=== PATIENT | male | born 1955 | race Caucasian/White ===

== ENCOUNTER 2022-07-16 18:58 | Inpatient (IN) | payer MEDICAID ==
[~2022-07-16] VITALS: Ht 165.1 cm; Wt 81.6 kg
--- NOTE | 2022-07-16 18:59 | NUR ---
PATIENT BIBA TO BED 2
[2022-07-16 19:09] VITALS: BP 104/54
[2022-07-16] MEDS ORDERED: NACL 0.9% 1,000 ML IV SCH (19:20)
[2022-07-16] MEDS ORDERED: cefTRIAXone 1,000 MG in DEXT 5% MINI-BAG PLUS 50 ML IV ONE (19:20)
--- NOTE | 2022-07-16 19:21 | NUR ---
Dr. Lizama examining patient.
[2022-07-16] MEDS ORDERED: cefTRIAXone 1,000 MG VIAL ONE (19:29)
--- NOTE | 2022-07-16 19:40 | NUR ---
PT TAKEN TO CT VIA ELOY
[2022-07-16 19:46] LABS: HEMATOCRIT 50.9 % (36-52); HEMOGLOBIN 16.1 g/dL (12.0-18.0); MEAN CORPUSCULAR HEMOGLOBIN 32 pg (27-31); MEAN CORPUSCULAR HGB CONC 32 g/dL (33-37); MEAN CORPUSCULAR VOLUME 100.8 fL (80-94); PLATELET COUNT (AUTO) 128 K/uL (140-450); RED BLOOD CELL COUNT(AUTO) 5.05 MIL/uL (4.20-6.10); RED CELL DISTRIBUTION WIDTH 15.1 % (11.6-13.7); WHITE BLOOD COUNT (AUTO) 17.5 K/uL (4.8-10.8)
--- NOTE | 2022-07-16 19:51 | NUR ---
66YR OLD MALE BIB EMS C/O ABD PAIN PER FAMILY XTODAY. PT IS A&OX2. PT DOES STATE UPPER GASTRIC ABD PAIN. 09/21 [place]. PT HAS HX OF ETOH ABUSE AND DRUG USE. PT DENIES USE OF BOTH TODAY. ON BEDSIDE EQUITY ANALYST HOB ELEVATED. RESP EVEN AND UNLABORED. DENIES CP OR SOB. PT IS A POOR HISTORIAN. BED AT LOWEST POSITION SIDE RAILS UP X2 NKDA UNKNOWN
[2022-07-16 20:04] LABS: LIPASE 311 U/L (73-393)
[2022-07-16 20:09] LABS: ALBUMIN 3.1 g/dL (3.4-5.0); ANION GAP 25.6 (8-16); CARBON DIOXIDE 17.8 mmol/L (21-32); POTASSIUM 3.4 mmol/L (3.5-5.1); TOTAL BILIRUBIN 3.2 mg/dL (0.0-1.0)
[2022-07-16 20:14] LABS: BASOPHILS % (MANUAL) 0 % (0-2); EOSINOPHILS % (MANUAL) 0 % (0-4); LYMPHOCYTES % (MANUAL) 1 % (20-46); MONOCYTES % (MANUAL) 2 % (5-12)
[2022-07-16] MEDS ORDERED: MORPHINE SULFATE 4 MG/ML SYR IVP ONE (20:20)
[2022-07-16 20:24] LABS: CREATININE 4.5 mg/dL (0.6-1.3)
[2022-07-16] MEDS ORDERED: INSULIN REGULAR, HUMAN 100 UNIT in NACL 0.9% 100 ML IV ONE ×2 (20:45)
--- NOTE | 2022-07-16 21:18 | NUR ---
PT APPEARS TO BE RESTING IN SUPINE POSITION, EQUAL RISE AND FALL OF CHEST WALL. ALL NEEDS MET AT THIS TIME. BED LOCKED IN LOWEST POSITION, SIDE RAILS X2 FOR SAFETY.
--- NOTE | 2022-07-16 21:19 | NUR ---
BELONGINGS LIST DONE.
--- NOTE | 2022-07-16 21:28 | NUR ---
ADMISSION ORDERS FOR ICU ADMIT. PT DX OF DKA. PT GLUC OF 1125.
--- NOTE | 2022-07-16 21:30 | NUR ---
DAUGHTER MARC MADE AWARE ABOUT PT STAYING IN HOSPITAL.
[2022-07-16] MEDS: NACL 0.9% 1,000 ML IV SCH ×3 (22:15→23:16)
--- NOTE | 2022-07-16 22:25 | NUR ---
PER FAMILY PT WAS NOT DIAGNOSED WITH DIABETES, BUT FAMILY THOUGHT HE DID D/T SYMPTOMS.
--- NOTE | 2022-07-16 22:34 | NUR ---
PT DOES NOT TAKE MEDICATION. MED RECON COMPLETED.
--- NOTE | 2022-07-16 22:34 | NUR ---
LAB AT BEDSIDE.
[2022-07-16] MEDS ORDERED: INSULIN LISPRO 100 UNITS/ML VIAL SUBQ SCH (22:55)
[2022-07-16] MEDS ORDERED: POTASSIUM CHL 40 MEQ/ D5-1/2NS 1,000 ML IV ONE (23:06)
[2022-07-16] MEDS: POTASSIUM CHL 40 MEQ/ D5-1/2NS 1,000 ML IV SCH (23:23)
--- NOTE | 2022-07-16 23:25 | NUR ---
PT IS LYING IN SUPINE POSITION, APPEARS TO BE ANXIOUS, PT REPOSITIONED, LIGHTS TURNED DOWN TO MINIMIZE STIMULATION. BED LOCKED IN LOWEST POSITION, SIDE RAILS X2 FOR SAFTEY. MEDICATION RUNNING ORDERED.
--- NOTE | 2022-07-16 23:41 | NUR ---
PT APPEARS TO BE LESS ANXIOUS, PT IS LYING STILL IN BED WITH EYES CLOSED. ALL NEEDS MET AT THIS TIME. BED LOCKED IN LOWEST POSITION, SIDE RAILS X2 FOR SAFETY.
[2022-07-16 23:49] LABS: ANION GAP 22.4 (8-16); CARBON DIOXIDE 18.5 mmol/L (21-32)
[2022-07-17 00:13] LABS: CREATININE 4.7 mg/dL (0.6-1.3)
[2022-07-17 00:14] LABS: POTASSIUM 2.9 mmol/L (3.5-5.1)
[2022-07-17 00:22] LABS: HEMATOCRIT 42.9 % (36-52); HEMOGLOBIN 14.4 g/dL (12.0-18.0); MEAN CORPUSCULAR HEMOGLOBIN 32 pg (27-31); MEAN CORPUSCULAR HGB CONC 34 g/dL (33-37); MEAN CORPUSCULAR VOLUME 94.6 fL (80-94); PLATELET COUNT (AUTO) 90 K/uL (140-450); RED BLOOD CELL COUNT(AUTO) 4.53 MIL/uL (4.20-6.10); RED CELL DISTRIBUTION WIDTH 14.1 % (11.6-13.7); WHITE BLOOD COUNT (AUTO) 12.2 K/uL (4.8-10.8)
[2022-07-17 00:41] LABS: LYMPHOCYTES % (MANUAL) 7 % (20-46); MONOCYTES % (MANUAL) 1 % (5-12)
[2022-07-17 04:23] LABS: ANION GAP 22.8 (8-16); POTASSIUM 3.8 mmol/L (3.5-5.1)
[2022-07-17 04:30] LABS: CREATININE 5.1 mg/dL (0.6-1.3)
--- NOTE | 2022-07-17 04:42 | NUR ---
DR BENTON NOTIFED OF CRITICAL LAB VALUES . ORDERS RECIEVED N/S BOLUS WIDE OPEN.
--- NOTE | 2022-07-17 04:57 | NUR ---
Texted Dr Snider regarding sodium went up from 161 to 163; bun and creat 75 and 4.7 to 72 and 5.1. inserted meeks, no urine, just blood from trauma meeks insertion. Asked Dr Snider to give bolus NS; stated to hold NS bolus right now. Will hold NS bolus and let the nurse know
[2022-07-17] MEDS: POTASSIUM CHL 40 MEQ/ D5-1/2NS 1,000 ML IV SCH ×3 (05:18→11:41)
[2022-07-17] MEDS: NACL 0.45% 1,000 ML IV SCH ×2 (06:08→21:21)
--- NOTE | 2022-07-17 07:00 | NUR ---
Ultrasound at bedside.
--- NOTE | 2022-07-17 07:24 | NUR ---
REPORT GIVEN TO KELLEY MCLEOD. TRANSFER OF CARE AT THIS TIME
[2022-07-17] MEDS: NACL 0.9% 1,000 ML IV SCH ×3 (07:41→22:15)
[2022-07-17 08:16] LABS: ANION GAP 23.9 (8-16); CARBON DIOXIDE 13.8 mmol/L (21-32); POTASSIUM 4.7 mmol/L (3.5-5.1)
--- NOTE | 2022-07-17 08:20 | NUR ---
Patient respond to name only. Bed Rest with Iv on left av patent. Right wirst Iv running patent . Ns saline at 250cc/hr. Insulin at 6 IU/H. 30% Potassium and 5%Dextrose and 0.45% NS at 12cc/hr. no erythema or swelling around iv sites f/c in place, dry blood in meatus, no active bleeding, pt restless, on soft restraints, n/c intact, st on cm, hr 118 while at rest, 120s when restless.
[2022-07-17 08:23] LABS: CREATININE 5.4 mg/dL (0.6-1.3)
--- NOTE | 2022-07-17 10:16 | NUR ---
bs 293, pt on insulin drip 6 u/hour, on d5 1/2 ns w 40 kcl at 250 cc/hour, ns 125 cc/hour, and 1/2 ns 100 cc/hour
--- NOTE | 2022-07-17 10:19 | NUR ---
no distress noted, st on cm, o2 sat 98% ra, on 2 points soft restrains, intermittent restlessness. sr up times 2
[2022-07-17 12:04] LABS: APPEARANCE,URINE CLEAR (CLEAR); BILIRUBIN,URINE NEGATIVE (NEGATIVE); BLOOD, URINE 3+ (NEGATIVE); COLOR,URINE YELLOW (YELLOW); LEUKOCYTE ESTERASE ,URINE 2+ (NEGATIVE); NITRITE, URINE POSITIVE (NEGATIVE); UGLUCOSE 1+ (NEGATIVE)
[2022-07-17 12:14] LABS: ANION GAP 21.1 (8-16); CARBON DIOXIDE 13.8 mmol/L (21-32); POTASSIUM 4.9 mmol/L (3.5-5.1)
[2022-07-17 12:17] LABS: CREATININE 5.2 mg/dL (0.6-1.3)
[2022-07-17 12:23] LABS: RBC,URINE 20-50 /HPF (0-5)
[2022-07-17] MEDS ORDERED: PIPERACILLIN/TAZOBACTAM 2.25 GM VIAL IV ONE ×2 (12:55→20:51)
[2022-07-17] MEDS: PIPERACILLIN/TAZOBACTAM 2.25 GM in DEXTROSE 5% 50 ML IV SCH ×2 (13:05→21:20)
[2022-07-17 13:24] LABS: BARBITURATE, URINE NEGATIVE ng/ml (NEG <=200); BENZODIAZEPINE, URINE NEGATIVE ng/mL (NEG <=200); CANNABINOID, URINE NEGATIVE ng/mL (NEG <=50); COCAINE, URINE NEGATIVE ng/mL (NEG <=300); OPIATE, URINE POSITIVE ng/mL (NEG <=2000); PHENCYCLIDINE SCREEN,URINE NEGATIVE ng/mL (NEG <=25)
--- NOTE | 2022-07-17 13:25 | NUR ---
pt still ocassional restlessness, attempting to get off the bed, on two points soft restraints, on d51/2 ns w 40 meq KCL at 250 cc/hour, insulin 6 u/hour, 1/2 ns 100 cc/hour, st on cm, hr 114, sr up times 2. last bs 202.
--- NOTE | 2022-07-17 15:30 | NUR ---
sleeping, intermittent restlessness, o2 sat 96% ra, st on cm, hr 111, sr up tmes 2, soft restraints on, n/c intact, multiple attempts of getting off the bed
[2022-07-17] MEDS ORDERED: LORazepam 2 MG/ML VIAL ONE ×2 (15:51→22:56)
[2022-07-17] MEDS ORDERED: LORazepam 2 MG/ML VIAL IVP SCH (15:59)
--- NOTE | 2022-07-17 16:21 | NUR ---
increased restlessness, medicated w ativan per dr order, bs 123, on insulin drip, 6 units per hour, d5 1/2 ns w 40 kcl 250 hour, 1/2 ns 100 per hour, ns 125 per hour, st on cm, hr 107, o2 sat 97% at 2 l/m via nc, sr up times 2.
[2022-07-17] MEDS ORDERED: DEXTROSE 10% 1,000 ML IV SCH (16:55)
[2022-07-17] MEDS ORDERED: KCL 20 MEQ IN 100 mL PREMIX 200 ML IV ONE ×2 (16:55→17:10)
[2022-07-17] MEDS ORDERED: DEXTROSE 10% 1,000 ML IV ONE (16:58)
--- NOTE | 2022-07-17 17:56 | NUR ---
bs 123. Dr Snider aware, referred to Dr Galeana fluids change: d5 1/2 ns w 40 kcl stopped. started on d10 w 40 kcl as k rider 100/hour, kept on rest fluids: 1/2 ns 100 per hour, ns 125 cc per hour, insulin 6 units per hour currently nsr on cm, hr 98/min, o2 sat 97% at 2 l/m via nc, sr up times 2
--- NOTE | 2022-07-17 18:30 | NUR ---
right hand iv infiltrated (NS w insulin), there is hand and forearm swelling, iv dc'd ice pack at swelling site
--- NOTE | 2022-07-17 19:10 | NUR ---
decreased swelling right hand and wrist, ice pack in place after swelling noted, md made aware picc line has been ordered.
--- NOTE | 2022-07-17 19:29 | NUR ---
report to Rafy cage shift manager nurse
--- NOTE | 2022-07-17 19:30 | NUR ---
L AC PIV infiltrated at this time. placed 3 new PIV on L EJ and 2 on L shoulder.
--- NOTE | 2022-07-17 20:30 | NUR ---
blood sugar [address] Silverman contacted. TORB of d50 amp PRN at this time.
[2022-07-17] MEDS ORDERED: DEXTROSE 50% 50 ML SYR IVP ONE (20:53)
[2022-07-17] MEDS ORDERED: DEXTROSE 50% 50 ML SYR IVP PRN (21:00)
[2022-07-17] MEDS ORDERED: INSULIN REGULAR, HUMAN 100 UNIT in NACL 0.9% 100 ML IV SCH ×4 (21:45→22:55)
[2022-07-17 22:08] LABS: CARBON DIOXIDE 10.8 mmol/L (21-32); POTASSIUM 3.8 mmol/L (3.5-5.1)
[2022-07-17 22:11] LABS: CREATININE 4.3 mg/dL (0.6-1.3)
--- NOTE | 2022-07-17 22:30 | NUR ---
requested PRN for agitation from Dr. Silverman at this time.
[2022-07-17 22:52] LABS: ANION GAP 20.8 (8-16); CARBON DIOXIDE 14.8 mmol/L (21-32); POTASSIUM 5.6 mmol/L (3.5-5.1)
[2022-07-17 22:58] LABS: CREATININE 4.7 mg/dL (0.6-1.3)
--- NOTE | 2022-07-17 22:59 | NUR ---
critical lab values reported to dr. porras. RAH of nephro consult at this time.
[2022-07-17] MEDS: LORazepam 2 MG/ML VIAL IVP PRN (23:02)
--- NOTE | 2022-07-17 23:03 | NUR ---
Benji biller stopped at this time.
[2022-07-18] MEDS ORDERED: NOREPINEPHRINE 4 MG/4 ML VIAL IV ONE (00:24)
[2022-07-18] MEDS: NACL 0.45% 1,000 ML IV SCH ×3 (00:44→22:22)
[2022-07-18 00:46] LABS: ANION GAP 17.8 (8-16); CARBON DIOXIDE 15.4 mmol/L (21-32); POTASSIUM 5.2 mmol/L (3.5-5.1)
[2022-07-18 00:57] LABS: CREATININE 4.6 mg/dL (0.6-1.3)
--- NOTE | 2022-07-18 01:11 | NUR ---
critical labs reported to Dr. Silverman, cl 128 co2 15.4 CA 6.5 pending orders at this time.
[2022-07-18 04:39] LABS: ANION GAP 15.8 (8-16); CARBON DIOXIDE 18.1 mmol/L (21-32); POTASSIUM 4.9 mmol/L (3.5-5.1)
[2022-07-18 04:47] LABS: CREATININE 4.3 mg/dL (0.6-1.3)
--- NOTE | 2022-07-18 05:30 | NUR ---
ABG DRAWN. PT ON 2L NC SPO2 98%.
[2022-07-18] MEDS: PIPERACILLIN/TAZOBACTAM 2.25 GM in DEXTROSE 5% 50 ML IV SCH ×3 (05:49→21:54)
[2022-07-18] MEDS: NACL 0.9% 1,000 ML IV SCH (06:25)
--- NOTE | 2022-07-18 07:29 | NUR ---
REPORT RECEIVED FROM MYLES BENSON, TRANSFER OF CARE AT THIS TIME Addendum: 07/18/22 at 0753 by MNKAT RECEIVED PT IN BED, CURRENTLTY RUNNING D45% AT 125CC, D10 AT 100CC, INSULIN AT 3U
[2022-07-18] MEDS: DEXTROSE 5% 1,000 ML IV SCH ×2 (08:00→18:09)
--- NOTE | 2022-07-18 08:00 | NUR ---
PER DR FAUSTIN, START D5 AT 100 FOR BS AND TO CONTINUE TO CLOSE SURESH PT CURRENTLY ON 3U INSULIN. Addendum: 07/18/22 at [email or web address] FAUSTIN OF BS 160
[2022-07-18] MEDS ORDERED: DEXT 5% /NACL 0.9% 1,000 ML IV SCH (08:05)
[2022-07-18 08:23] LABS: ANION GAP 16.1 (8-16); CREATININE 3.8 mg/dL (0.6-1.3); POTASSIUM 5.1 mmol/L (3.5-5.1)
--- NOTE | 2022-07-18 09:29 | NUR ---
DR WALSH AT BEDSIDE FOR EVAL
--- NOTE | 2022-07-18 09:44 | NUR ---
SPOKE TO BERENICE SISTER, INFORMED OF PT STATUS
--- NOTE | 2022-07-18 09:48 | NUR ---
PATIENT HAS BEEN SCREENED AND CATEGORIZED MODERATE NUTRITION RISK. PATIENT WILL BE SEEN WITHIN 3-5 DAYS OF ADMISSION. REVIEWED BY DOT COTTRELL RD Addendum: 07/18/22 at [address] PT HAS BEEN RE-SCREENED AND CATEGORIZED HIGH NUTRITION RISK. PATIENT WILL BE SEEN WITHIN 1-2 DAYS OF ADMISSION.
[2022-07-18] MEDS ORDERED: ALBUTEROL 0.083% 2.5 MG/3 ML NEBU INH PRN (10:10)
[2022-07-18] MEDS ORDERED: ALBUTEROL 0.083% 2.5 MG/3 ML NEBU INH ONE (10:11)
--- NOTE | 2022-07-18 10:22 | NUR ---
DR HOPKINS AT BEDSIDE FOR EVAL, STATED TO HOLD OFF ON PAIN MEDS FOR THE PT D/T ALOC. PT REPOSITIONED FOR COMFORT
--- NOTE | 2022-07-18 10:45 | NUR ---
DR JOHN PAUL Freeman/ NEPHCHAUNCEY AT BEDSIDE FOR EVAL
--- NOTE | 2022-07-18 11:38 | NUR ---
PT NOTED TO BE MORE AWAKE, OPENS EYES SPONTANEOUSLY, FOLLOWS SOUNDS WITH EYES, ABLE TO MOVE ALL EXTREMITIES. INCOMPREGHENSIBLE VERBAL RESPONSE NOTED, IS NOT ABLE TO FOLLOW COMMANDS.
--- NOTE | 2022-07-18 12:00 | NUR ---
DR FAUSTIN AT BEDSIDE FOR EVAL
--- NOTE | 2022-07-18 12:10 | NUR ---
PICC LINE NURSE AT BEDSIDE FOR PLACEMENT OF MIDLINE, DOUBLE LUMEN MIDLINE IN THE RIGHT FOREARM PLACE, BLOOD RETURN NOTED. DRIPS SWITCHED FROM LEFT SHOULDERS TO MIDLINE
--- NOTE | 2022-07-18 12:30 | NUR ---
PT ATTEMPTING TO PULL OUT LAW AND MIDLINE, PRN ADMIN
[2022-07-18] MEDS: LORazepam 2 MG/ML VIAL IVP PRN (12:38)
--- NOTE | 2022-07-18 12:38 | NUR ---
ECHO AT BEDSIDE
[2022-07-18 12:42] LABS: ANION GAP 17.9 (8-16); CARBON DIOXIDE 16.1 mmol/L (21-32); CREATININE 3.5 mg/dL (0.6-1.3)
[2022-07-18] MEDS ORDERED: PIPERACILLIN/TAZOBACTAM 2.25 GM VIAL IV ONE ×2 (12:57→21:23)
[2022-07-18 16:02] LABS: ANION GAP 14.4 (8-16); CARBON DIOXIDE 18.3 mmol/L (21-32); CREATININE 3.2 mg/dL (0.6-1.3); POTASSIUM 4.7 mmol/L (3.5-5.1)
--- NOTE | 2022-07-18 16:08 | NUR ---
07/18/22 RD INITIAL ASSESSMENT COMPLETED PLEASE REFER TO NUTRITION ASSESSMENT UNDER CARE ACTIVITY FOR ESTIMATED NUTRITIONAL NEEDS. 1. CONTINUE NPO, PER MD. 2. WHEN/ IF MEDICALLY APPROPRIATE, AND IF PT GETS ON PO DIET, RECOMMEND CCHO 60 GRAM MECHANICAL SOFT DIET TOLERATED 3. MONITOR LAB VALUES. 4. RD TO FOLLOW-UP 2-3 DAYS, HIGH RISK REVIEWED BY DOT COTTRELL RD
--- NOTE | 2022-07-18 19:00 | NUR ---
PT IS STILL TACHY, CONFUSED. FOLWY IS INTACK, BLOOD NOTED AROUND PERINEAL AREA
--- NOTE | 2022-07-18 19:20 | NUR ---
Pt report given to CARMELO BENSON. Transfer of care at this time.
--- NOTE | 2022-07-18 19:20 | NUR ---
PT HAS SOME BRUISING ON THE LEFT UPPER ARM AREA. MIDLINE ON THE RIGHT IS INTACT.
[2022-07-18 20:56] LABS: CARBON DIOXIDE 19.3 mmol/L (21-32); CREATININE 2.6 mg/dL (0.6-1.3); POTASSIUM 4.3 mmol/L (3.5-5.1)
--- NOTE | 2022-07-18 22:00 | NUR ---
PT IS CLEANED AND CHANGED, NO BOWEL MOVEMENT. NOTED. PT IS TILL ALTER.
--- NOTE | 2022-07-18 22:20 | NUR ---
Empty his meeks had 300 ml
--- NOTE | 2022-07-18 22:25 | NUR ---
pt urine is tea color.
[2022-07-19] VITALS (10 sets, daily range): BP systolic 94–132; BP diastolic 68–88
--- NOTE | 2022-07-19 | NUR ---
PT HAS EPISODE OF COUGHING.
[2022-07-19 01:03] LABS: ANION GAP 15.9 (8-16); CARBON DIOXIDE 17.3 mmol/L (21-32); CREATININE 2.5 mg/dL (0.6-1.3); POTASSIUM 4.2 mmol/L (3.5-5.1)
--- NOTE | 2022-07-19 02:00 | NUR ---
NOTICE BLOOD COMING OUT FROM HIS PENIS AND THE URINE. NURSE REPOSITITONED THE LAW DRESSSING STICKER.
[2022-07-19 04:17] LABS: ANION GAP 15.6 (8-16); CARBON DIOXIDE 17.7 mmol/L (21-32); CREATININE 2.2 mg/dL (0.6-1.3); POTASSIUM 4.3 mmol/L (3.5-5.1)
[2022-07-19] MEDS ORDERED: PIPERACILLIN/TAZOBACTAM 2.25 GM VIAL IV ONE (05:54)
[2022-07-19] MEDS: DEXTROSE 5% 1,000 ML IV SCH ×2 (06:05→14:00)
[2022-07-19] MEDS: PIPERACILLIN/TAZOBACTAM 2.25 GM in DEXTROSE 5% 50 ML IV SCH ×3 (06:06→20:13)
[2022-07-19] MEDS: NACL 0.45% 1,000 ML IV SCH (07:30)
--- NOTE | 2022-07-19 07:30 | NUR ---
ASSUMED PATIENT CARE, CONCUR WITH PRIOR NURSING ASSESSMENTS.
[2022-07-19 08:18] LABS: BASOPHILS % (AUTO) 0.2 % (0.0-2.0); EOSINOPHILS # (AUTO) 0.3 K/uL (0-0.4); EOSINOPHILS % (AUTO) 2.4 % (0.0-4.0); HEMATOCRIT 37.9 % (36-52); HEMOGLOBIN 12.7 g/dL (12.0-18.0); LYMPHOCYTES % (AUTO) 9.4 % (20.5-51.1); MEAN CORPUSCULAR HEMOGLOBIN 32 pg (27-31); MEAN CORPUSCULAR HGB CONC 33 g/dL (33-37); MEAN CORPUSCULAR VOLUME 94.6 fL (80-94); MONOCYTES # (AUTO) 0.9 K/uL (0.8-1.0); MONOCYTES % (AUTO) 8.2 % (1.7-9.3); NEUTROPHILS # (AUTO) 8.6 K/uL (1.8-7.7); NEUTROPHILS % (AUTO) 79.8 % (42.2-75.2); PLATELET COUNT (AUTO) 53 K/uL (140-450); RED BLOOD CELL COUNT(AUTO) 4.01 MIL/uL (4.20-6.10); RED CELL DISTRIBUTION WIDTH 14.5 % (11.6-13.7); WHITE BLOOD COUNT (AUTO) 10.8 K/uL (4.8-10.8)
--- NOTE | 2022-07-19 08:50 | NUR ---
ADMITTED TO ICU 5. PATIENT CARE REPORT GIVEN TO ASSISTANT VICE PRESIDENT. CONTINUITY OF CARE ENDORSED, PATIENT TRANSFERRED VIA ACLS PROTOCOL.
[2022-07-19 08:57] LABS: ANION GAP 14.5 (8-16); CARBON DIOXIDE 19.3 mmol/L (21-32); POTASSIUM 3.8 mmol/L (3.5-5.1)
[2022-07-19 09:01] LABS: MAGNESIUM 1.8 mg/dL (1.8-2.4); PHOSPHORUS 2.3 mg/dL (2.5-4.9)
[2022-07-19] MEDS ORDERED: POTASSIUM CHL 40 MEQ/ D5-1/2NS 1,000 ML IV SCH (09:20)
[2022-07-19] MEDS ORDERED: BLOOD GLUCOSE MONITORING 1 DEV DEV FS SCH ×2 (09:20→11:30)
[2022-07-19] MEDS ORDERED: CALCIUM CHLORIDE 10% 1,000 MG in NACL 0.9% 100 ML IV ONE (10:05)
[2022-07-19] MEDS ORDERED: DEXTROSE 50% 50 ML SYR IVP PRN (10:15)
[2022-07-19] MEDS ORDERED: INSULIN LISPRO SLIDING SCALE 100 UNITS/ML VIAL SUBQ PRN (10:15)
[2022-07-19] MEDS ORDERED: CALCIUM GLUCONATE 10% 1,000 MG in NACL 0.9% 50 ML IV SCH (10:30)
[2022-07-19] MEDS ORDERED: ONDANSETRON 4 MG/2 ML VIAL IVP PRN (11:05)
[2022-07-19] MEDS ORDERED: INSULIN REGULAR, HUMAN 100 UNIT in NACL 0.9% 100 ML IV SCH ×2 (11:05)
[2022-07-19] MEDS ORDERED: ONDANSETRON 4 MG/2 ML VIAL ONE (11:05)
--- NOTE | 2022-07-19 11:08 | NUR ---
OVERRIDE ZOFRAN 4MG DUE TO PT NAUSEA AND VOMITING.
[2022-07-19] MEDS ORDERED: INSULIN REGULAR, HUMAN 100 UNIT in NACL 0.9% 100 ML IV PRN ×2 (11:10)
[2022-07-19] MEDS ORDERED: OCTREOTIDE ACETATE 1.25 MG in NACL 0.9% 250 ML IV SCH (11:10)
--- NOTE | 2022-07-19 11:52 | NUR ---
DC PLANNIN YRS OLD MALE PATIENT WAS ADMITTED FROM HOME WITH A DX OF DKA. PATIENT HAS A HX OF DM. ADMITTED TO ICU FOR INSULIN DRIP. CONSULTED WITH PULMO AND NEPHRO, CARDIO AND GI. DC PLAN TO GO HOME WHEN STABLE CM TO FOLLOW
--- NOTE | 2022-07-19 13:31 | NUR ---
DR LING HI CONSULTED FOR POSSIBLE GI BLEED. REPORTED 1 EPISODE OF BLACK LIQUID EMESIS APPROXIMATELY 50CC. PROTONIX PPI ORDERED
[2022-07-19 13:35] LABS: ANION GAP 13.6 (8-16); CARBON DIOXIDE 18.5 mmol/L (21-32); CREATININE 1.8 mg/dL (0.6-1.3); POTASSIUM 4.1 mmol/L (3.5-5.1)
[2022-07-19] MEDS: BLOOD GLUCOSE MONITORING 1 DEV DEV FS SCH ×2 (14:31→15:52)
--- NOTE | 2022-07-19 15:34 | NUR ---
DC PLANNING ASSESSMENT COMPLETE PLEASE REFER TO ASSESSMENT FOR DETAILS PT IS A 66 YR OLD MALE ADMITTED TO [facility] FROM HOME WITH DX OF DKA. PT IS REPORTED TO BE CHRONICALLY HOMELESS AND HAS BEEN HOMESLESS FOR 2-3 YRS. PT IS RPEORTED TO STAY WITHIN THE [place] ARE[place]. 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 TAE REPORTS BEING NOTIFIED THAT PT TESTED POSITIVE AT ADMISSION FOR OPIATES, WHICH SHE REPORTS BEING UNAWARE OF. MARC REPORTS SHE WILL CONTACT PTS SISTER, TO SEE IF PATIENT CAN STAY WITH HER ONCE DC'D. Addendum: 07/19/22 at 1536 by Ankur ARANDA Amended: Links added.
[2022-07-19 16:44] LABS: ANION GAP 12.8 (8-16); CARBON DIOXIDE 20.3 mmol/L (21-32); CREATININE 1.8 mg/dL (0.6-1.3); POTASSIUM 4.1 mmol/L (3.5-5.1)
[2022-07-19 16:47] LABS: PHOSPHORUS 2.3 mg/dL (2.5-4.9)
[2022-07-19 16:59] LABS: PHOSPHORUS 2.8 mg/dL (2.5-4.9)
--- NOTE | 2022-07-19 19:30 | NUR ---
RECEIVED PT FROM ICU NURSE CYNTHIA FOR CONTINUITY OF CARE. PT IS LETHARGIC, ON ROOM AIR. BREATHING EVEN AND UNLABORED. PT HAS MIDLINE ON R UPPER ARM,ON SANDOSTATIN DRIP AT 50MCG/HR AND D51/2 NS WITH 40MEQ K AT 100ML/HR.LAW IN PLACE. BLEEDING ON URETHRA NOTED.BRUISING ON L UPPER ARM.ALL PRECAUTIONS IN PLACE. CALL LIGHT WITHIN REACH. WILL CONTINUE TO MONITOR.
[2022-07-19 20:06] LABS: ANION GAP 15.5 (8-16); CARBON DIOXIDE 18.6 mmol/L (21-32); CREATININE 1.7 mg/dL (0.6-1.3); POTASSIUM 5.1 mmol/L (3.5-5.1)
--- NOTE | 2022-07-19 20:15 | NUR ---
SCHEDULED MEDICATIONS GIVEN. NO ACUTE DRUG REACTION NOTED. ALL PRECAUTIONS IN PLACE.WILL CONTINUE TO MONITOR.
[2022-07-19] MEDS ORDERED: DEXT 5% / NACL 0.45% 1,000 ML IV SCH (20:40)
[2022-07-19] MEDS: LORazepam 2 MG/ML VIAL IVP PRN (21:19)
--- NOTE | 2022-07-19 21:19 | NUR ---
PATIENT RESTLESS AT THIS TIME, ATIVAN ORDERED. BP-121/81 HR-99 ON ROOM AIR SAT 99%.
--- NOTE | 2022-07-19 21:40 | NUR ---
PT TRANSFERRED TO [facility] ROOM 111B IN STABLE CONDITION.
--- NOTE | 2022-07-19 22:09 | NUR ---
REPORT GIVEN TO KELLEY ROME FOR CONTINUITY OF CARE.
--- NOTE | 2022-07-19 22:10 | NUR ---
RECEIVED REPORT FROM KELLEY RUIZ. PT WAS DOWNGRADED FROM ICU TO MST DEPARTMENT. PT IS SLEEPING, BEDREST AND AOX1. PT IS ON ROOM AIR AND ON NPO DIET. PT HAS LAW CATHETER AND HAS RIGHT UPPER ARM MIDLINE RUNNING WITH D5 1/2 NS AT 100 ML/HR. PT HAS BRUISES ON UPPER EXTREMITIES. ALL SAFETY PRECAUTION WAS IMPLEMENTED. BED IN LOW POSITION, BED WHEELS ON LOCKED AND CALL LIGHT WITHIN REACH.
[2022-07-20] VITALS: BP 152/94
--- NOTE | 2022-07-20 00:10 | NUR ---
NOTIFIED DR. WILLIAMSON THAT THE PT WAS ALREADY DOWNGRADED TO TELE UNIT AND HAS A BLOOD GLUCOSE OF 224. HUMALOG SLIDING SCALE WAS ON HOLD AND PT IS ON D5 1/[address] WILLIAMSON ORDER TO CONTINUE THE SLIDING SCALE AND STOP THE D5 1/2 NS. ORDER WAS MADE AND CARRIED OUT.
[2022-07-20 00:37] LABS: ANION GAP 13.8 (8-16); CARBON DIOXIDE 21.2 mmol/L (21-32); CREATININE 1.7 mg/dL (0.6-1.3)
[2022-07-20] MEDS: BLOOD GLUCOSE MONITORING 1 DEV DEV FS SCH ×7 (00:58→23:18)
[2022-07-20] MEDS: INSULIN LISPRO SLIDING SCALE 100 UNITS/ML VIAL SUBQ PRN ×7 (00:59→23:20)
--- NOTE | 2022-07-20 02:00 | NUR ---
PT IS ON SLEEP. CHEST RISE AND FALL SYMMETRICALLY NOTED. RESPIRATION IS EVEN AND UNLABORED. NO S/S OF RESPIRATORY DISTRESS NOTED. ALL SAFETY MEASURES IMPLEMENTED. BED IN LOW POSITION, BED WHEELS ON LOCK AND CALL LIGHT WITHIN REACH.
[2022-07-20 04:00] VITALS: BP 154/77
--- NOTE | 2022-07-20 04:00 | NUR ---
MORNING CARE WAS DONE TO PT. CHANGED CHUCKS, LINENS AND GOWN. NO S/S OF RESPIRATORY DISTRESS NOTED. ALL SAFETY MEASURES IMPLEMENTED. BED IN LOW POSITION, BED WHEELS ON LOCK AND CALL LIGHT WITHIN REACH.
[2022-07-20 04:01] LABS: BASOPHILS % (AUTO) 0.4 % (0.0-2.0); EOSINOPHILS # (AUTO) 0.2 K/uL (0-0.4); EOSINOPHILS % (AUTO) 1.7 % (0.0-4.0); HEMATOCRIT 42.6 % (36-52); HEMOGLOBIN 14.2 g/dL (12.0-18.0); LYMPHOCYTES # (AUTO) 1.4 K/uL (2.0-11.5); LYMPHOCYTES % (AUTO) 10.5 % (20.5-51.1); MEAN CORPUSCULAR HEMOGLOBIN 32 pg (27-31); MEAN CORPUSCULAR HGB CONC 33 g/dL (33-37); MEAN CORPUSCULAR VOLUME 95.8 fL (80-94); MONOCYTES # (AUTO) 1.2 K/uL (0.8-1.0); MONOCYTES % (AUTO) 8.5 % (1.7-9.3); NEUTROPHILS # (AUTO) 10.8 K/uL (1.8-7.7); NEUTROPHILS % (AUTO) 78.9 % (42.2-75.2); PLATELET COUNT (AUTO) 28 K/uL (140-450); RED BLOOD CELL COUNT(AUTO) 4.45 MIL/uL (4.20-6.10); RED CELL DISTRIBUTION WIDTH 14.9 % (11.6-13.7); WHITE BLOOD COUNT (AUTO) 13.6 K/uL (4.8-10.8)
--- NOTE | 2022-07-20 04:07 | NUR ---
PT BLOOD GLUCOSE IS 236. HUMALOG INSULIN 4 UNITS WAS GIVEN TO PT.
[2022-07-20] MEDS ORDERED: PIPERACILLIN/TAZOBACTAM 2.25 GM VIAL IV ONE (04:18)
[2022-07-20] MEDS: PIPERACILLIN/TAZOBACTAM 2.25 GM in DEXTROSE 5% 50 ML IV SCH ×3 (04:23→20:05)
--- NOTE | 2022-07-20 04:23 | NUR ---
SCHEDULED AND PRESCRIBED MEDICATION WAS GIVEN TO PT PER MD ORDER. ALL SAFETY MEASURES IMPLEMENTED. BED IN LOW POSITION, BED WHEELS ON LOCK AND CALL LIGHT WITHIN REACH.
[2022-07-20 04:26] LABS: ANION GAP 13.8 (8-16); CARBON DIOXIDE 21.1 mmol/L (21-32); CREATININE 1.7 mg/dL (0.6-1.3); POTASSIUM 4.9 mmol/L (3.5-5.1)
[2022-07-20 04:31] LABS: MAGNESIUM 2.1 mg/dL (1.8-2.4); PHOSPHORUS 1.9 mg/dL (2.5-4.9)
--- NOTE | 2022-07-20 07:22 | NUR ---
PT IS STABLE. ENDORSED PT TO MORNING SHIFT NURSE FOR CONTINUITY OF CARE.
[2022-07-20 08:00] VITALS: BP 123/80
[2022-07-20] MEDS: NACL 0.45% 1,000 ML IV SCH ×2 (08:05→18:32)
[2022-07-20] MEDS: PANTOPRAZOLE 40 MG INJ VIAL IVP SCH (09:46)
[2022-07-20 10:30] LABS: ANION GAP 16.3 (8-16); CREATININE 1.7 mg/dL (0.6-1.3); POTASSIUM 5.3 mmol/L (3.5-5.1)
--- NOTE | 2022-07-20 11:50 | NUR ---
CALLED DR. JEWELS WILLIAMSON AT [facility] [phone] TO REVIEW ROUTINE ABG; SLADE/EXCHANGE TO PAGE FORMMARIA C LEONE; PATIENT INFORMATION AND CALL BACK NUMBER GIVEN
--- NOTE | 2022-07-20 11:53 | NUR ---
CALL BACK FROM DR. JEWELS WILLIAMSON REVIEWED ROUTINE ABG RESULTS; NO RESPIRATORY ORDERS GIVEN
[2022-07-20 12:00] VITALS: BP 129/79
[2022-07-20 13:44] LABS: ANION GAP 14.7 (8-16); CARBON DIOXIDE 21.1 mmol/L (21-32); CREATININE 1.5 mg/dL (0.6-1.3); POTASSIUM 3.8 mmol/L (3.5-5.1)
[2022-07-20] MEDS: ALBUTEROL 0.083% 2.5 MG/3 ML NEBU INH SCH ×2 (14:28→19:00)
--- NOTE | 2022-07-20 14:32 | NUR ---
07/20/22 RD FOLLOW UP COMPLETED PLEASE REFER TO NUTRITION ASSESSMENT UNDER CARE ACTIVITY FOR ESTIMATED NUTRITIONAL NEEDS. 1. CONTINUE NPO, PER MD 2. RECOMMEND ST EVAL 3. WHEN/ IF MEDICALLY APPROPRIATE, AND IF PT PASSES ST EVAL, RECOMMEND CCHO 60 GRAM DIET WITH MODIFIED TEXTURE, PER ST. 4. MONITOR LAB VALUES. 5. RD TO FOLLOW-UP 2-3 DAYS, HIGH RISK REVIEWED BY DOT COTTRELL RD
[2022-07-20 16:00] VITALS: BP 145/89
[2022-07-20 16:48] LABS: ANION GAP 12.7 (8-16); CARBON DIOXIDE 21.3 mmol/L (21-32); CREATININE 1.7 mg/dL (0.6-1.3)
--- NOTE | 2022-07-20 19:15 | NUR ---
RECEIVED PT FROM MORNING SHIFT NURSE. PT IS AOX1, SLEEPING AND ON BEDREST. PT IS ON ROOM AIR AND ON [facility] PUREE DIET. PT HAS RIGHT UPPER ARM MIDLINE RUNNING WITH 1/2 NS AT 100ML/HR. NO S/S OF RESPIRATORY DISTRESS NOTED. PT SKIN IS INTACT. ALL SAFETY MEASURES IMPLEMENTED. BED IN LOW POSITION, BED WHEELS ON LOCK AND CALL LIGHT WITHIN REACH.
--- NOTE | 2022-07-20 19:54 | NUR ---
ENDORSE PATIENT IN STABLE CONDITION TO PM SHIFT NURSE WHILE PIV 1/2NS INFUSING AT 100ML/HR VIA R. UPPER ARM MIDLINE. PATIENT START PUREE DIET TONIGHT DINNER
[2022-07-20] MEDS: INSULIN LANTUS 100 UNITS/ML 10 ML VIAL SUBQ SCH (20:07)
--- NOTE | 2022-07-20 20:07 | NUR ---
PT BLOOD GLUCOSE IS 257. HUMALOG INSULIN 6 UNITS WAS GIVEN TO THE PT. ALL THE SCHEDULED AND PRESCRIBED MEDICATION WAS GIVEN TO PT. ALL SAFETY MEASURES IMPLEMENTED. BED IN LOW POSITION, BED WHEELS ON LOCK AND CALL LIGHT WITHIN REACH.
[2022-07-20 20:29] LABS: ANION GAP 12.1 (8-16); CARBON DIOXIDE 22.1 mmol/L (21-32); CREATININE 1.5 mg/dL (0.6-1.3); POTASSIUM 4.2 mmol/L (3.5-5.1)
--- NOTE | 2022-07-20 23:20 | NUR ---
PT BLOOD GLUCOSE IS 181. HUMALOG INSULIN 4 UNITS WAS GIVEN TO PT. ALL SAFETY MEASURES IMPLEMENTED. BED IN LOW POSITION, BED WHEELS ON LOCK AND CALL LIGHT WITHIN REACH.
[2022-07-21] VITALS: BP 129/79
[2022-07-21 00:31] LABS: ANION GAP 12.6 (8-16); CARBON DIOXIDE 21.9 mmol/L (21-32); CREATININE 1.5 mg/dL (0.6-1.3); POTASSIUM 3.5 mmol/L (3.5-5.1)
--- NOTE | 2022-07-21 02:00 | NUR ---
PT IS ON SLEEP. CHEST RISE AND FALL SYMMETRICALLY NOTED. RESPIRATION IS EVEN AND UNLABORED. NO S/S OF RESPIRATORY DISTRESS NOTED. ALL SAFETY MEASURES IMPLEMENTED, BED IN LOW POSITION, BED WHEELS ON LOCK AND CALL LIGHT WITHIN REACH.
[2022-07-21] MEDS: BLOOD GLUCOSE MONITORING 1 DEV DEV FS SCH ×5 (03:35→21:00)
[2022-07-21] MEDS: INSULIN LISPRO SLIDING SCALE 100 UNITS/ML VIAL SUBQ PRN ×5 (03:36→21:04)
--- NOTE | 2022-07-21 03:36 | NUR ---
PT BLOOD GLUCOSE IS 163. HUMALOG INSULIN 2 UNITS WAS GIVEN TO PT. ALL SAFETY MEASURES IMPLEMENTED, BED IN LOW POSITION, BED WHEELS ON LOCK AND CALL LIGHT WITHIN REACH.
[2022-07-21] MEDS: NACL 0.45% 1,000 ML IV SCH ×3 (04:05→23:09)
[2022-07-21 04:10] LABS: BASOPHILS % (AUTO) 0.2 % (0.0-2.0); EOSINOPHILS # (AUTO) 0.4 K/uL (0-0.4); EOSINOPHILS % (AUTO) 2.9 % (0.0-4.0); HEMATOCRIT 35.1 % (36-52); HEMOGLOBIN 11.9 g/dL (12.0-18.0); LYMPHOCYTES # (AUTO) 1.4 K/uL (2.0-11.5); LYMPHOCYTES % (AUTO) 11.2 % (20.5-51.1); MEAN CORPUSCULAR HEMOGLOBIN 32 pg (27-31); MEAN CORPUSCULAR HGB CONC 34 g/dL (33-37); MEAN CORPUSCULAR VOLUME 95.5 fL (80-94); MONOCYTES # (AUTO) 1.3 K/uL (0.8-1.0); MONOCYTES % (AUTO) 10.9 % (1.7-9.3); NEUTROPHILS # (AUTO) 9.1 K/uL (1.8-7.7); NEUTROPHILS % (AUTO) 74.8 % (42.2-75.2); PLATELET COUNT (AUTO) 61 K/uL (140-450); RED BLOOD CELL COUNT(AUTO) 3.68 MIL/uL (4.20-6.10); RED CELL DISTRIBUTION WIDTH 14.3 % (11.6-13.7); WHITE BLOOD COUNT (AUTO) 12.2 K/uL (4.8-10.8)
[2022-07-21 04:19] LABS: ANION GAP 11.6 (8-16); CARBON DIOXIDE 22.5 mmol/L (21-32); CREATININE 1.4 mg/dL (0.6-1.3); POTASSIUM 4.1 mmol/L (3.5-5.1)
[2022-07-21 04:22] LABS: MAGNESIUM 2.1 mg/dL (1.8-2.4); PHOSPHORUS 1.4 mg/dL (2.5-4.9)
[2022-07-21] MEDS: PIPERACILLIN/TAZOBACTAM 2.25 GM in DEXTROSE 5% 50 ML IV SCH ×3 (04:38→21:04)
--- NOTE | 2022-07-21 04:38 | NUR ---
SCHEDULED AND PRESCRIBED MEDICATION WAS GIVEN TO PT. ALL SAFETY MEASURES IMPLEMENTED, BED IN LOW POSITION, BED WHEELS ON LOCK AND CALL LIGHT WITHIN REACH.
--- NOTE | 2022-07-21 07:23 | NUR ---
PT IS STABLE. ENDORSED PT TO MORNING NURSE FOR CONTINUITY OF CARE.
--- NOTE | 2022-07-21 07:24 | NUR ---
RECEIVED PATIENT FROM SCHOOL PATROL NURSE.PATIENT SLEEPING IN BED.CHEST RISING AND FALLING EVENLY.NO OTHER SIGNS OF DISTRESS NOTED.ALL SAFETY MEASURES IN PLACE.WILL CONTINUE TO MONITOR.
[2022-07-21 08:00] VITALS: BP 137/79
[2022-07-21] MEDS: ALBUTEROL 0.083% 2.5 MG/3 ML NEBU INH SCH ×3 (08:23→20:13)
[2022-07-21] MEDS: PANTOPRAZOLE 40 MG INJ VIAL IVP SCH (09:03)
[2022-07-21] MEDS ORDERED: SODIUM PHOS / POTASSIUM PHOS 1 PKT PDR PO SCH (09:20)
[2022-07-21] MEDS ORDERED: CALCIUM GLUC 1 GM/50 mL NS BAG 50 ML IV SCH (09:30)
[2022-07-21 12:50] LABS: ANION GAP 14.3 (8-16); CARBON DIOXIDE 20.3 mmol/L (21-32); CREATININE 1.4 mg/dL (0.6-1.3); POTASSIUM 3.6 mmol/L (3.5-5.1)
--- NOTE | 2022-07-21 13:00 | NUR ---
FREQUENT ROUNDS DONE.PATIENT IS IN BED.VS STABLE. NO OTHER SIGNS OF DISTRESS NOTED.DAUGHTER AT BEDSIDE. ASKING ABOUT THE DISEASE PROCESS, EXPLAINED REGARDING THE PLAN OF CARE. EDUCATION GIVEN REGARDING DKA, VERBALIZED UNDERSTANDING.
[2022-07-21 16:00] VITALS: BP 135/87
[2022-07-21 16:18] LABS: ANION GAP 13.8 (8-16); CARBON DIOXIDE 18.9 mmol/L (21-32); CREATININE 1.4 mg/dL (0.6-1.3); POTASSIUM 3.7 mmol/L (3.5-5.1)
[2022-07-21 17:57] LABS: ANION GAP 15.8 (8-16); CARBON DIOXIDE 18.8 mmol/L (21-32); CREATININE 1.5 mg/dL (0.6-1.3); POTASSIUM 3.6 mmol/L (3.5-5.1)
--- NOTE | 2022-07-21 19:30 | NUR ---
ENDORSED TO ASSISTANT CHILD CARE TEACHER FOR CONTINUITY OF CARE. ALL NEEDS MET DURING THE SHIFT.
--- NOTE | 2022-07-21 20:00 | NUR ---
PATIENT IS WELL RESTED IN BED ON ROOM AIR SATING 98%. NO DISTRESS. NO COMPLAINTS OF PAIN. IVF 1/2 NS 75 ML/HR INFUSING IN THE RIGHT UPPER ARM MIDLINE. BEDBOUND. LAW CATHETER DRAINING WELL. SAFETY MEASURES ARE IN PLACE. CALL LIGHT IN REACH.
[2022-07-21 20:31] LABS: ANION GAP 13.6 (8-16); CARBON DIOXIDE 19.9 mmol/L (21-32); CREATININE 1.5 mg/dL (0.6-1.3); POTASSIUM 3.5 mmol/L (3.5-5.1)
[2022-07-21] MEDS: INSULIN LANTUS 100 UNITS/ML 10 ML VIAL SUBQ SCH (21:07)
[2022-07-22] VITALS: BP 100/58
[2022-07-22] MEDS: BLOOD GLUCOSE MONITORING 1 DEV DEV FS SCH ×6 (00:19→20:15)
[2022-07-22] MEDS: INSULIN LISPRO SLIDING SCALE 100 UNITS/ML VIAL SUBQ PRN ×5 (00:21→20:16)
[2022-07-22 01:01] LABS: ANION GAP 10.9 (8-16); CARBON DIOXIDE 22.6 mmol/L (21-32); CREATININE 1.5 mg/dL (0.6-1.3); POTASSIUM 3.5 mmol/L (3.5-5.1)
--- NOTE | 2022-07-22 04:00 | NUR ---
BLOOD SUGAR WAS 133 , NO INSULIN COVERAGE NEEDED.
[2022-07-22 04:01] LABS: BASOPHILS % (AUTO) 0.3 % (0.0-2.0); EOSINOPHILS # (AUTO) 0.5 K/uL (0-0.4); EOSINOPHILS % (AUTO) 4.9 % (0.0-4.0); HEMATOCRIT 34.5 % (36-52); LYMPHOCYTES % (AUTO) 19.9 % (20.5-51.1); MEAN CORPUSCULAR HEMOGLOBIN 32 pg (27-31); MEAN CORPUSCULAR HGB CONC 35 g/dL (33-37); MEAN CORPUSCULAR VOLUME 92.6 fL (80-94); MONOCYTES # (AUTO) 1.4 K/uL (0.8-1.0); MONOCYTES % (AUTO) 13.6 % (1.7-9.3); NEUTROPHILS # (AUTO) 6.3 K/uL (1.8-7.7); NEUTROPHILS % (AUTO) 61.3 % (42.2-75.2); PLATELET COUNT (AUTO) 97 K/uL (140-450); RED BLOOD CELL COUNT(AUTO) 3.73 MIL/uL (4.20-6.10); RED CELL DISTRIBUTION WIDTH 14.6 % (11.6-13.7); WHITE BLOOD COUNT (AUTO) 10.2 K/uL (4.8-10.8)
[2022-07-22 04:15] LABS: ANION GAP 12.9 (8-16); CARBON DIOXIDE 21.4 mmol/L (21-32); CREATININE 1.4 mg/dL (0.6-1.3); POTASSIUM 3.3 mmol/L (3.5-5.1)
[2022-07-22 04:19] LABS: MAGNESIUM 1.9 mg/dL (1.8-2.4); PHOSPHORUS 1.6 mg/dL (2.5-4.9)
--- NOTE | 2022-07-22 07:22 | NUR ---
GAVE REPORT TO DAY SHIFT NURSE FOR CONTINUITY OF CARE.
--- NOTE | 2022-07-22 07:31 | NUR ---
RECEIVED PATIENT FROM PARTNER ALLIANCE MANAGER NURSE.PATIENT SLEEPING IN BED. CHEST RISING AND FALLING EVENLY.ALL SAFETY MEASURES IN PLACE. CALL LIGHT WITHIN REACH.NO SIGNS OF DISTRESS NOTED. WILL CONTINUE TO MONITOR.
[2022-07-22] MEDS: ALBUTEROL 0.083% 2.5 MG/3 ML NEBU INH SCH ×3 (07:39→19:33)
[2022-07-22 08:00] VITALS: BP 149/75
[2022-07-22 09:33] LABS: ANION GAP 12.2 (8-16); CARBON DIOXIDE 22.2 mmol/L (21-32); CREATININE 1.3 mg/dL (0.6-1.3); POTASSIUM 3.4 mmol/L (3.5-5.1)
[2022-07-22] MEDS: PANTOPRAZOLE 40 MG INJ VIAL IVP SCH (09:53)
[2022-07-22] MEDS ORDERED: POTASSIUM CHLORIDE 10 MEQ TABER PO SCH (10:03)
[2022-07-22] MEDS: SODIUM PHOS / POTASSIUM PHOS 1 PKT PDR PO SCH ×2 (10:16→20:27)
--- NOTE | 2022-07-22 11:15 | NUR ---
FREQUENT ROUNDS DONE. PATIENT IN BED. NO OTHER SIGNS OF DISTRESS NOTED. MORNING CARE GIVEN. ALL SCHEDULED MEDICATIONS GIVEN. REPLACED PRN POTTASIUM AND PHOSPHOROUS PER LAB RESULTS AND DOCTORS ORDER.CALL LIGHT WITHIN REACH.WILL CONTINUE TO MONITOR
[2022-07-22] MEDS: NACL 0.45% 1,000 ML IV SCH (12:45)
--- NOTE | 2022-07-22 14:45 | NUR ---
FREQUENT ROUNDS DONE. PATIENT STANDING AT BEDSIDE. FOUND STOOL ALL OVER THE BEDSIDE AND BODY. PATIENT WAS CLEANED AND PROVIDED A SHOWER WITH THE HELP OF STUDIO HAND.
--- NOTE | 2022-07-22 15:51 | NUR ---
07/22/22 RD FOLLOW UP COMPLETED PLEASE REFER TO NUTRITION ASSESSMENT UNDER CARE ACTIVITY FOR ESTIMATED NUTRITIONAL NEEDS. 1. CONTINUE [facility] [place] 60 GRAM PUREE DIET WITH NECTAR THICK LIQUIDS 2. MONITOR PO INTAKE, GI, LAB VALUES. 3. RD TO FOLLOW-UP 7 DAYS, LOW RISK REVIEWED BY DOT COTTRELL RD
--- NOTE | 2022-07-22 15:57 | NUR ---
P.T. NOTES P.T. EVAL COMPLETED; REFER TO EVAL FOR DETAILS.
[2022-07-22 16:00] VITALS: BP 144/78
[2022-07-22 16:36] LABS: ANION GAP 14.6 (8-16); CARBON DIOXIDE 18.1 mmol/L (21-32); CREATININE 1.3 mg/dL (0.6-1.3); POTASSIUM 3.7 mmol/L (3.5-5.1)
--- NOTE | 2022-07-22 19:30 | NUR ---
ENDORSED THE PATIENT TO STRINGER MACHINE TENDER NURSE FOR THE CONTINUITY OF CARE.
[2022-07-22 20:00] LABS: CARBON DIOXIDE 19.6 mmol/L (21-32); CREATININE 1.4 mg/dL (0.6-1.3); POTASSIUM 3.6 mmol/L (3.5-5.1)
[2022-07-22] MEDS: INSULIN LANTUS 100 UNITS/ML 10 ML VIAL SUBQ SCH (20:27)
--- NOTE | 2022-07-22 20:27 | NUR ---
SCHEDULED DUE MEDICATION GIVEN. BLOOD SUGAR CHECK AT 2014 WAS 197 INSULIN COVERAGE ADMINISTERED.
--- NOTE | 2022-07-22 22:16 | NUR ---
PATIENT IS AWAKE, NO S/S OF RESPIRATORY DISTRESS ON ROOM AIR. DENIES PAIN OR ANY DISCOMFORT. IVF D5NS INFUSING WELL. SKIN WARM AND DRY TO THE TOUCH. CALL LIGHT WITHIN REACH. SAFETY MEASURES IN PLACE. LAW CATHETER DRAINING TO GRAVITY.
[2022-07-22] MEDS ORDERED: ACETAMINOPHEN 325 MG TAB PO PRN (23:05)
[2022-07-23] VITALS: BP 136/87
[2022-07-23] MEDS ORDERED: ACETAMINOPHEN EXTRA STRENGTH 500 MG TAB PO PRN (00:05)
[2022-07-23] MEDS: BLOOD GLUCOSE MONITORING 1 DEV DEV FS SCH ×7 (00:07→23:43)
[2022-07-23] MEDS: INSULIN LISPRO SLIDING SCALE 100 UNITS/ML VIAL SUBQ PRN ×6 (00:10→23:44)
[2022-07-23] MEDS: NACL 0.45% 1,000 ML IV SCH (01:49)
[2022-07-23] MEDS: ALBUTEROL 0.083% 2.5 MG/3 ML NEBU INH SCH ×3 (07:12→19:00)
--- NOTE | 2022-07-23 07:12 | NUR ---
ENDORSED PATIENT TO NURSE EUSEBIO FOR CONTINUITY OF CARE.
--- NOTE | 2022-07-23 07:13 | NUR ---
RECEIVED PT FROM MATERIAL MANAGER NURSE FOR CONTINUITY OF CARE. PT IN BED SLEEPING. VISIBLE CHEST RISE/FALL, RESPIRATIONS EVEN AND UNLABORED ON RA. SKIN WARM AND DRY, MIDLINE ON R U/A DOUBLE LUMEN RUNNING 1/2 NS @ 125CC. CALL LIGHT WITHIN REACH. ALL SAFETY PRECAUTIONS IN PLACE.
[2022-07-23 07:16] LABS: HEMATOCRIT 34.4 % (36-52); HEMOGLOBIN 11.9 g/dL (12.0-18.0); MEAN CORPUSCULAR HEMOGLOBIN 33 pg (27-31); MEAN CORPUSCULAR HGB CONC 34 g/dL (33-37); MEAN CORPUSCULAR VOLUME 95.1 fL (80-94); PLATELET COUNT (AUTO) 128 K/uL (140-450); RED BLOOD CELL COUNT(AUTO) 3.62 MIL/uL (4.20-6.10); RED CELL DISTRIBUTION WIDTH 14.7 % (11.6-13.7); WHITE BLOOD COUNT (AUTO) 9.4 K/uL (4.8-10.8)
[2022-07-23 07:54] LABS: ANION GAP 11.7 (8-16); CREATININE 1.1 mg/dL (0.6-1.3); POTASSIUM 3.7 mmol/L (3.5-5.1)
[2022-07-23 08:00] VITALS: BP 106/68
[2022-07-23 08:09] LABS: MAGNESIUM 1.8 mg/dL (1.8-2.4); PHOSPHORUS 2.7 mg/dL (2.5-4.9)
[2022-07-23 08:25] LABS: EOSINOPHILS % (MANUAL) 5 % (0-4); LYMPHOCYTES % (MANUAL) 24 % (20-46); METAMYELOCYTES % 2 % (0-0); MONOCYTES % (MANUAL) 14 % (5-12); PROMYELOCYTES % 1 % (0-0)
[2022-07-23] MEDS: METOPROLOL SUCCINATE 50 MG TABER PO SCH (08:41)
[2022-07-23] MEDS: ECOTRIN 81 MG TABEC PO SCH (08:41)
[2022-07-23] MEDS: lisinopriL 5 MG TAB PO SCH (08:48)
--- NOTE | 2022-07-23 08:48 | NUR ---
ADMINISTERED SCHEDULED MEDS AND 2 UNITS OF INSULIN PER SLIDING SCALE. PT TOLERATING WELL.
[2022-07-23] MEDS: PANTOPRAZOLE 40 MG INJ VIAL IVP SCH (11:09)
[2022-07-23 16:00] VITALS: BP 111/74
--- NOTE | 2022-07-23 19:10 | NUR ---
RECEIVED PATIENT IN BED AWAKE, ALERT AND ORIENTED X2 WITH CONFUSION. DENIES PAIN. NO ACUTE RESPIRATORY DISTRESS. SKIN WARM AND DRY TO TOUCH. SAFETY PRECAUTION IN PLACE, CALL LIGHT IN REACH.
--- NOTE | 2022-07-23 19:15 | NUR ---
ENDORSED PT TO INTERNET SALES REPRESENTATIVE NURSE FOR CONTINUITY OF CARE. PT IN STABLE CONDITION.
[2022-07-23] MEDS: INSULIN LANTUS 100 UNITS/ML 10 ML VIAL SUBQ SCH (20:13)
[2022-07-24] VITALS: BP 122/75
[2022-07-24] MEDS: BLOOD GLUCOSE MONITORING 1 DEV DEV FS SCH ×6 (04:08→23:06)
--- NOTE | 2022-07-24 06:29 | NUR ---
PATIENT IS ASLEEP. ALL NEEDS ATTENDED TO. PT IS STABLE CONDITION. SAFETY PRECAUTIONS IN PLACE, CALL LIGHT IN REACH
--- NOTE | 2022-07-24 07:25 | NUR ---
RECEIVED PT FROM DRUG PURCHASER NURSE FOR CONTINUITY OF CARE. PT IS SLEEPING. VISIBLE CHEST RISE/FALL. RESPIRATIONS EVEN AND UNLABORED ON RA. NO DISTRESS NOTED. CALL LIGHT WITHIN REACH. ALL SAFETY PRECAUTIONS IN PLACE.
[2022-07-24] MEDS: ALBUTEROL 0.083% 2.5 MG/3 ML NEBU INH SCH ×3 (07:45→20:06)
[2022-07-24 08:00] VITALS: BP 101/74
[2022-07-24] MEDS: lisinopriL 5 MG TAB PO SCH (09:00)
[2022-07-24] MEDS: PANTOPRAZOLE 40 MG INJ VIAL IVP SCH (09:00)
[2022-07-24] MEDS: METOPROLOL SUCCINATE 50 MG TABER PO SCH (09:00)
[2022-07-24 09:05] LABS: BASOPHILS # (AUTO) 0.1 K/uL (0.00-0.22); BASOPHILS % (AUTO) 0.7 % (0.0-2.0); EOSINOPHILS # (AUTO) 0.3 K/uL (0-0.4); EOSINOPHILS % (AUTO) 2.8 % (0.0-4.0); HEMATOCRIT 40.2 % (36-52); HEMOGLOBIN 13.2 g/dL (12.0-18.0); LYMPHOCYTES # (AUTO) 2.9 K/uL (2.0-11.5); LYMPHOCYTES % (AUTO) 24.5 % (20.5-51.1); MEAN CORPUSCULAR HEMOGLOBIN 32 pg (27-31); MEAN CORPUSCULAR HGB CONC 33 g/dL (33-37); MONOCYTES # (AUTO) 1.1 K/uL (0.8-1.0); NEUTROPHILS # (AUTO) 7.4 K/uL (1.8-7.7); NEUTROPHILS % (AUTO) 62.3 % (42.2-75.2); PLATELET COUNT (AUTO) 164 K/uL (140-450); RED BLOOD CELL COUNT(AUTO) 4.14 MIL/uL (4.20-6.10); RED CELL DISTRIBUTION WIDTH 14.4 % (11.6-13.7); WHITE BLOOD COUNT (AUTO) 11.9 K/uL (4.8-10.8)
[2022-07-24 09:13] LABS: ANION GAP 11.6 (8-16); CARBON DIOXIDE 21.4 mmol/L (21-32); CREATININE 1.1 mg/dL (0.6-1.3)
[2022-07-24] MEDS: ECOTRIN 81 MG TABEC PO SCH (09:14)
[2022-07-24 09:26] LABS: MONOCYTES % (AUTO) 9.7 % (1.7-9.3)
[2022-07-24] MEDS: INSULIN LISPRO SLIDING SCALE 100 UNITS/ML VIAL SUBQ PRN ×4 (12:38→23:11)
[2022-07-24 16:00] VITALS: BP 106/72
--- NOTE | 2022-07-24 19:10 | NUR ---
ENDORSED PT TO PHOTOGRAPHIC REPRODUCTION TECHNICIAN NURSE FOR CONTINUITY OF CARE. PT IS STABLE.
--- NOTE | 2022-07-24 19:30 | NUR ---
RECEIVED REPORT FROM DAY SHIFT NURSE EUSEBIO FOR CONTINUITY OF CARE. PATIENT IS A&O X2. PATIENT IS ON ROOM AIR, BREATHING IS NORMAL WITH SYMMETRICAL RISE AND FALL OF CHEST. IV IS A DOUBLE LUMEN MIDLINE ON THE [place], SALINE LOCKED. PATIENT IS AWAKE, SITTING UP IN HIGH-FOWLERS POSITION, WATCHING TELEVISION. BED IS IN LOWEST POSITION, WHEELS LOCKED, CALL LIGHT IN PLACE. WILL CONTINUE TO OBSERVE PATIENT.
[2022-07-24 20:00] VITALS: BP 108/73
[2022-07-24] MEDS: INSULIN LANTUS 100 UNITS/ML 10 ML VIAL SUBQ SCH (20:09)
--- NOTE | 2022-07-24 22:34 | NUR ---
PATIENT WAS STANDING AT BEDSIDE; CATHETER WAS TUGGING ACROSS BED. I IMMEDIATELY STOPPED PATIENT FROM WALKING ANY FURTHER FROM THE BED AND ASKED HIM WHERE HE WAS GOING. PATIENT STATED HE WAS GOING TO BATHROOM. I INFORMED THE PATIENT THAT HE HAD A CATHETER IN HIM AND WAS WEARING A DIAPER. PATIENT STATED HE HAD POOPED. I TOLD PATIENT THAT WAS OKAY, AND TO GET BACK INTO BED AND I WOULD CHANGE HIM. PATIENT CONTINUED STANDING BEDSIDE TRYING TO MOVE FORWARD; ER NURSE WAS AT THE NEXT BED AND CAME OVER TO ASSIST ME IN GETTING THE PATIENT BACK INTO BED. PATIENT WAS PLACED BACK IN BED AND BED ALARM WAS PUT ON. PATIENT WAS THEN CHANGED WITH THE ASSISTANCE OF KELLEY CHOU. PATIENT WAS CLEANED, NEW [employer]S DIAPER WAS APPLIED AND NEW BED SHEET WAS PLACED ON BED SINCE PATIENT HAD POOPED ON IT. AFTER CHANGING PATIENT WAS TOLD TO STAY IN BED AND CALL USING CALL LIGHT IF HE NEEDED CHANGING AGAIN; PATIENT STATED OKAY. WILL CONTINUE TO OBSERVE PATIENT.
--- NOTE | 2022-07-24 23:16 | NUR ---
PATIENT REQUESTED TYLENOL FOR PAIN. CHECKED PATIENT'S CHART, TYLENOL WAS APPROPRIATE TO GIVE. PATIENT'S BS WAS 162; ADMINISTERED 2 UNITS OF HUMALOG FOR COVERAGE. PATIENT IS LYING IN BED WATCHING TV. WILL CONTINUE TO OBSERVE PATIENT.
[2022-07-25 04:00] VITALS: BP 112/67
[2022-07-25] MEDS: BLOOD GLUCOSE MONITORING 1 DEV DEV FS SCH ×5 (04:39→20:00)
--- NOTE | 2022-07-25 05:00 | NUR ---
PATIENT SLEPT OFF AND ON THROUGHOUT THE NIGHT. 800ML URINE WAS EMPTIED FROM PATIENT'S CATHETER BAG. PATIENT HAD ONE BM EARLIER IN THE NIGHT. PATIENT HAS NOT HAD ANOTHER BM. BS WAS 118, NO COVERAGE WAS NEEDED. WILL CONTINUE TO OBSERVE PATIENT.
[2022-07-25] MEDS: ALBUTEROL 0.083% 2.5 MG/3 ML NEBU INH SCH ×2 (07:24→14:13)
--- NOTE | 2022-07-25 07:31 | NUR ---
ENDORSED TO DAY SHIFT NURSE IVA FOR CONTINUITY OF CARE. PATIENT IS STABLE.
[2022-07-25 08:00] VITALS: BP 129/80
[2022-07-25] MEDS: PANTOPRAZOLE 40 MG INJ VIAL IVP SCH (09:10)
[2022-07-25] MEDS: METOPROLOL SUCCINATE 50 MG TABER PO SCH (09:14)
[2022-07-25] MEDS: ECOTRIN 81 MG TABEC PO SCH (09:14)
[2022-07-25] MEDS: lisinopriL 5 MG TAB PO SCH (09:17)
--- NOTE | 2022-07-25 10:10 | NUR ---
SCREEN FOR LOW KARENA SCALE AT RISK, CONTINUE TO FOLLOW PRESSURE ULCER PREVENTION INTERVENTIONS. -TURN AND REPOSITION PATIENT Q 2H, ASSIST IF NEEDED -ASSESS AND MONITOR SKIN CONDITION DURING POSITION CHANGES -OFFLOAD BILATERAL HEELS BY PLACING PILLOWS UNDER CALVES AT ALL TIMES, UNLESS OTHERWISE CONTRAINDICATED -PRESSURE REDISTRIBUTION BY PLACING PILLOWS AND OFFLOADING SACRALCOCCYX -KEEP SKIN CLEAN AND DRY AT ALL TIMES.
[2022-07-25] MEDS ORDERED: LISI5TAB24 PO (11:58)
[2022-07-25] MEDS ORDERED: ASPI-1856 PO (11:58)
[2022-07-25] MEDS ORDERED: LANTUS SUBQ (11:58)
[2022-07-25] MEDS ORDERED: METO50TE2 PO (11:58)
--- NOTE | 2022-07-25 13:30 | NUR ---
DC PLANNING ATTEMPTED TO MEET PT AT BEDSIDE SEVERAL TIMES, HOWEVER, PT IN RESTROOM. PROVIDED PTS NURSE WITH RESOURCES ( HOMELESS, SUBSTANCE USE, AND EMERGENCY ASSISTANCE RESOURCES) TO PROVIDE TO PT ONCE FINISHED. ENDORSED TO PT NURSE, THAT PT SISTER AND DAUGHTER UNABLE TO PROVIDE DATACAP DEVELOPER OR AFTER CARE. NURSE AWARE AND REPORTED SPEAKING TO PT.
--- NOTE | 2022-07-25 13:54 | NUR ---
PATIENT IN BATHROOM AT THIS TIME ARMATURE STRAIGHTENER TO ATTEMPT HHN THERAPY AT A LATER TIME
--- NOTE | 2022-07-25 14:17 | NUR ---
LAW CATHETER DISCONTINUATION, COPY OF DISCHARGE INSTRUCTION WITH RESOURCES PER SOCIAL WORK FOR SUBSTANCE ABUSE, HOMELESSNESS, AND OTHER INFORMATION. PATIENT VERBALIZES UNDERSTANDING OF TEACHING.
--- NOTE | 2022-07-25 14:28 | NUR ---
INTACT PERIPHERALLY INSERTED CENTRAL CATHETER REMOVAL FROM RIGHT ARM. PATIENT IDENTIFICATION BRACELET REMOVAL.
[2022-07-25 16:00] VITALS: BP 101/65
--- NOTE | 2022-07-25 18:08 | NUR ---
LEFT MESSAGE FOR MARC REGARDING MARKET RESEARCH ASSOCIATE OF PATIENT FOR DISCHARGE.
--- NOTE | 2022-07-25 19:05 | NUR ---
LEFT MESSAGE FOR DEBBEY REGARDING SCANNING CLERK OF PATIENT FOR DISCHARGE.
--- NOTE | 2022-07-25 19:20 | NUR ---
RECEIVED REPORT FROM DAY SHIFT NURSE FOR CONTINUITY OF CARE. PT IS STABLE, ALERT AND ORIENTED X4, AMBULATORY. WILL MONITOR FREQUENTLY THROUGHOUT SHIFT.
--- NOTE | 2022-07-25 20:00 | NUR ---
Patient's Plan of Care was discussed and reviewed with LORNA CONTRERAS
[2022-07-25] MEDS: INSULIN LISPRO SLIDING SCALE 100 UNITS/ML VIAL SUBQ PRN (21:22)
[2022-07-25] MEDS: INSULIN LANTUS 100 UNITS/ML 10 ML VIAL SUBQ SCH (21:33)
--- NOTE | 2022-07-25 21:36 | NUR ---
PT LAST GLUCOSE CHECK = 280. 6 UNITS OF HUMALOG WAS ADMINISTERED. NO SIGNS OF DISTRESS NOTED. WILL CONTINUE TO MONITOR.
[2022-07-26] VITALS: BP 113/75
--- NOTE | 2022-07-26 05:54 | NUR ---
PT SLEPT WELL THROUGHOUT NIGHT, NO COMPLICATIONS. PT IS STABLE AT THIS TIME, WILL ENDORSE TO DAY SHIFT NURSE FOR CONTINUITY OF CARE.
[2022-07-26] MEDS: BLOOD GLUCOSE MONITORING 1 DEV DEV FS SCH ×6 (06:00→20:55)
[2022-07-26 08:00] VITALS: BP 92/54
[2022-07-26] MEDS: INSULIN LISPRO SLIDING SCALE 100 UNITS/ML VIAL SUBQ PRN ×4 (08:04→20:55)
[2022-07-26] MEDS: PANTOPRAZOLE 40 MG INJ VIAL IVP SCH (09:00)
[2022-07-26] MEDS: METOPROLOL SUCCINATE 50 MG TABER PO SCH (09:28)
[2022-07-26] MEDS: lisinopriL 5 MG TAB PO SCH (09:29)
[2022-07-26] MEDS: ECOTRIN 81 MG TABEC PO SCH (09:29)
--- NOTE | 2022-07-26 15:23 | NUR ---
REGARDING PATIENT PLACEMENT CASE MANAGEMENT NEEDS COVID VACCINE STATUS. PATIENT IS UNABLE TO RECALL IF HE RECEIVED VACCINE.
[2022-07-26 16:00] VITALS: BP 116/64
--- NOTE | 2022-07-26 19:40 | NUR ---
RECEIVED REPORT FROM DAY SHIFT NURSE FOR CONTINUITY OF CARE, PT ASLEEP AND STABLE AT THIS TIME. NOTICEABLE CHEST RISE AND FALL. AWAITING FURTHER PLANS FOR DISCHARGE TO SNF, WILL MONITOR THROUGHOUT SHIFT.
[2022-07-26] MEDS: INSULIN LANTUS 100 UNITS/ML 10 ML VIAL SUBQ SCH (21:00)
--- NOTE | 2022-07-26 21:00 | NUR ---
PT 2000 BLOOD GLUCOSE CHECK = 153, REFUSED HUMALOG BUT ALLOWED FOR SCHEDULED [place] 7 UNITS ADMINISTRATION. WILL CONTINUE TO MONITOR.
[2022-07-27] VITALS: BP 96/55
[2022-07-27] MEDS: BLOOD GLUCOSE MONITORING 1 DEV DEV FS SCH ×4 (06:00→12:09)
--- NOTE | 2022-07-27 06:27 | NUR ---
PT WAS IN AND OUT OF SLEEP THROUGHOUT THE NIGHT WITH NO APPARENT SIGNS OF DISTRESS NOTED. LAST GLUCOSE CHECK AT 0600 = 117, NO COVERAGE NEEDED. PT IS STABLE AT THIS TIME, WILL ENDORSE TO DAY SHIFT NURSE FOR CONTINUITY OF CARE.
--- NOTE | 2022-07-27 07:12 | NUR ---
ASSUMED CONTINUITY OF CARE. INITIAL ASSESSMENT DONE. KEEP COMFORTABLE ON BED. CALL LIGHT WITHIN REACH.
[2022-07-27 08:00] VITALS: BP 112/47
[2022-07-27] MEDS: PANTOPRAZOLE 40 MG INJ VIAL IVP SCH (08:24)
[2022-07-27 08:41] LABS: BASOPHILS % (AUTO) 0.5 % (0.0-2.0); EOSINOPHILS # (AUTO) 0.2 K/uL (0-0.4); EOSINOPHILS % (AUTO) 2.9 % (0.0-4.0); HEMATOCRIT 36.2 % (36-52); HEMOGLOBIN 12.3 g/dL (12.0-18.0); LYMPHOCYTES # (AUTO) 1.7 K/uL (2.0-11.5); LYMPHOCYTES % (AUTO) 21.9 % (20.5-51.1); MEAN CORPUSCULAR HEMOGLOBIN 33 pg (27-31); MEAN CORPUSCULAR HGB CONC 34 g/dL (33-37); MONOCYTES # (AUTO) 0.9 K/uL (0.8-1.0); MONOCYTES % (AUTO) 10.9 % (1.7-9.3); NEUTROPHILS % (AUTO) 63.8 % (42.2-75.2); PLATELET COUNT (AUTO) 178 K/uL (140-450); RED BLOOD CELL COUNT(AUTO) 3.77 MIL/uL (4.20-6.10); WHITE BLOOD COUNT (AUTO) 7.8 K/uL (4.8-10.8)
[2022-07-27 08:58] LABS: ANION GAP 6.3 (8-16); CARBON DIOXIDE 28.5 mmol/L (21-32); POTASSIUM 3.8 mmol/L (3.5-5.1)
[2022-07-27] MEDS: ECOTRIN 81 MG TABEC PO SCH (09:40)
[2022-07-27] MEDS: METOPROLOL SUCCINATE 50 MG TABER PO SCH (09:40)
[2022-07-27] MEDS: lisinopriL 5 MG TAB PO SCH (09:41)
[2022-07-27 16:00] VITALS: BP 114/68
--- NOTE | 2022-07-27 16:10 | NUR ---
D/C HOME VIA WHEELCHAIR. IN STABLE CONDITION. INFORMED [employer] SUPERVISOR -PAT AND CHARGE NURSE MACO HERRON.
--- NOTE | 2022-07-27 17:03 | NUR ---
PER [employer] DISPATCH CLERK -PAT, PT. CAN BE D/C NOW AND TRANSPORT WILL BE ARRANGED THROUGH [facility].
== END 2022-07-27 16:10 | disposition home or self-care (01) | DRG 720 ==
LOC: MED 18:58 → EDBD 18:58 → MTU 21:33 → MIC 07-19 05:39 → MTU 07-19 21:35
PROVIDERS: ADMIT Family Medicine; ATTEND Family Medicine
PROC: 05HY33Z Insertion of Infusion Device into Upper Vein, Percutaneous Approach (ICD-10-PCS; principal; 2022-07-18)
DX: A41.9 Sepsis, unspecified organism (principal); N17.0 Acute kidney failure with tubular necrosis; G93.41 Metabolic encephalopathy; E11.10 Type 2 diabetes mellitus with ketoacidosis without coma; E87.0 Hyperosmolality and hypernatremia; J18.9 Pneumonia, unspecified organism; I24.9 Acute ischemic heart disease, unspecified; E86.0 Dehydration; R65.20 Severe sepsis without septic shock; N39.0 Urinary tract infection, site not specified; K52.9 Noninfective gastroenteritis and colitis, unspecified; Z20.822 Contact with and (suspected) exposure to COVID-19; Z59.00 Homelessness unspecified
CPT/HCPCS: 36415; 36600; 70450; 71045; 76770; 80048; 80053; 80305; 81001; 82140; 82803; 82948; 83605; 83690; 83735; 83880; 84100; 84484; 85025; 87040; 87081; 87086; 87635-QW; 92526; 94640; 96365; 96375; 97110; 97116; 97530; 99291; C9113; J0610; J0696; J1815; J2060; J2270; J2354; J2405; J2543; J3480; J3490; J7030; J7060; J7613; Q0092